=== PATIENT | female | born 1965 | race Caucasian/White ===

== ENCOUNTER 2017-11-19 19:47 | Emergency (ER) | payer BC ==
[2017-11-19] MEDS ORDERED: Ondansetron ODT 4 MG TAB ONE (20:24)
[2017-11-19] MEDS ORDERED: Diazepam 10 MG/2 ML SYRINGE IVP SCH (20:45)
[2017-11-19] MEDS ORDERED: Promethazine HCl 25 MG/ML VIAL ONE (21:11)
--- NOTE | 2017-11-19 21:41 | RAD ---
PORTABLE CHEST: HISTORY: Dizziness. FINDINGS: The lungs are clear. The heart and mediastinum are unremarkable. IMPRESSION: No acute abnormality. POS: [facility]
[2017-11-19] MEDS ORDERED: Meclizine HCl 25 MG TAB ONE (21:43)
--- NOTE | 2017-11-19 21:45 | CT ---
CT HEAD WITHOUT CONTRAST: TECHNIQUE: Multiple axial tomograms obtained through the head without IV enhancement. FINDINGS: The ventricles have normal size and position. No evidence of intracranial hemorrhage, mass, or infarct. There is CSF density in the left middle cranial fossa, anteriorly, which does produce mild mass effec t on the anterior left temporal lobe. An arachnoid cyst is favored. Other etiologies, such as epide rmoid, cannot be excluded by CT. This could be further characterized with MRI. There is complete opacification of the left maxillary sinus. There is also opacification of the left ethmoid air cells. The other paranasal sinuses and mastoids appear well aerated and clear. IMPRESSION: 1. A 2.5 cm cerebrospinal fluid density in the anterior left middle cranial fossa, probably represen ting an arachnoid cyst. Epidermoid cannot be excluded by CT. Suggest elective MRI for further shweta cterization. 2. Complete opacification of the left maxillary sinus, indicating diffuse mucosal disease. There is also mucosal thickening in the left ethmoid air cells. POS: [facility]
[2017-11-19 22:09] LABS: #Eosinphils 0.1 thou/uL (0.0-0.7); #Lymphocytes 1.9 thou/uL (1.20-3.40); #Monocytes 0.8 thou/uL (0.11-0.59); #Neutrophils 9.2 thou/uL (1.40-6.50); %Basophils 0.3 % (0.0-1.0); %Eosinophils 0.5 % (0.0-10.0); %Monocytes 6.8 % (0.0-10.0); %Neutrophils 76.4 % (42.0-75.0); Hemoglobin 13.1 g/dL (12.0-16.0); Mean Corpuscular HGB CONC 34.3 g/dL (32.0-36.0); Mean Corpuscular Volume 87.5 fl (81.0-99.0); Mean Platelet Volume 6.7 fL (7.4-10.4); Platelet Count 293 thou/uL (130-400); RBC Distribution Width 12.5 % (11.5-14.5); Red Blood Cell (RBC) Count 4.37 mill/uL (4.20-5.40)
[2017-11-19 22:23] LABS: BHCG - Serum POSITIVE (NEGATIVE); Pregs Control Background? CLEAR/WHITE (CLR/WHITE); Pregs Control Bar Appear? YES (CONTROL BAR)
[2017-11-19 22:29] LABS: ALT (SGPT) 19 U/L (8-55); AST (SGOT) 23 U/L (5-34); Albumin 4.3 g/dL (3.5-5.0); Alkaline Phosphatase 82 U/L (40-150); Anion Gap 13 mmol/L (10-20); BUN (Urea Nitrogen) 12 mg/dL (9.8-20.1); Bilirubin, Total 0.5 mg/dL (0.2-1.2); CK (CPK) 74 U/L (29-168); Calc. Creatinine Clearance 0 mL/min (70-130); Calcium 9.3 mg/dL (7.8-10.44); Carbon Dioxide 23 mmol/L (22-29); Chloride 104 mmol/L (98-107); Estimated GFR-MDRD 84; Globulin 2.7 g/dL (2.4-3.5); Glucose 117 mg/dL (70-105); Lipase 25 U/L (8-78); Potassium 4.3 mmol/L (3.5-5.1); Sodium 136 mmol/L (136-145)
[2017-11-20 00:26] LABS: Bilirubin Negative (Negative); Blood, Urine Negative (Negative); Clarity CLEAR (Clear); Glucose, Urine (Dipstick) Negative (Negative); Leukocyte Trace (Negative); Nitrite Negative (Negative); Protein, Urine (Dipstick) Negative (Neg-Trace); Specific Gravity, Urine 1.008 (1.002-1.036); Urobilinogen 0.2 mg/dL (0.2-1.0)
[2017-11-20 00:28] LABS: Bacteria/HPF None Seen HPF (None Seen); Hyaline Casts/LPF 0-3 HYALINE CAST LPF (0-3 Hyaline); Pathc Cast-AUWi Flag 0.14 (0-2.49); RBC/HPF 0-3 HPF (0-3); Squamous Epithelial None Seen HPF (0-3); WBC/HPF 0-3 HPF (0-3)
[2017-11-20] MEDS ORDERED: Diazepam 5 MG TAB ONE (00:59)
== END 2017-11-20 01:15 | disposition home or self-care (01) ==
LOC: ERS 19:47
DX: R42 Dizziness and giddiness (principal); R11.2 Nausea with vomiting, unspecified; I10 Essential (primary) hypertension; E78.00 Pure hypercholesterolemia, unspecified; F32.9 Major depressive disorder, single episode, unspecified; Z79.899 Other long term (current) drug therapy
CPT/HCPCS: 36415; 70450; 71045; 80053; 81003; 81015; 82550; 83605; 83690; 84702; 84703; 85025; 93005; 96361; 96365; J2550; Q0162

== ENCOUNTER 2017-11-27 12:47 | Outpatient (CLI) | payer BC ==
--- NOTE | 2017-11-27 14:51 | MRI ---
BRAIN MRI WITH AND WITHOUT CONTRAST: DATE: 11/27/17. COMPARISON: None. HISTORY: Prior head CT demonstrated 2.5 cm cyst density in the anterior aspect of the left middle cranial lars a suspicious for arachnoid cyst. TECHNIQUE: Multiplanar, multisequence MR imaging of the brain is obtained with and without contrast. FINDINGS: The diffusion weighted imaging demonstrates no evidence for acute infarction. Axial gradient echo im aging demonstrates no evidence for intracranial hemorrhage. There is opacification of the maxillary sinus on the left and there is partial opacification of the a nterior ethmoid air cells on the left. Arterial flow voids at the axial level of the skull base appear grossly unremarkable on T2 weighted i maging. There are a few scattered foci of increased T2 and FLAIR signal within the periventricular, subcortic al, and deep white matter suggesting small-vessel disease. As seen on recent CT examination, there is a lesion of CSF signal intensity on all pulse sequences wi thin the anterior inferior aspect of the middle cranial fossa on the left, evidence of an incidentall y noted arachnoid cyst. This measures up to 1.4 cm in AP dimension by approximately 3.4 cm in transv erse dimension. Post contrast imaging demonstrates no abnormal enhancement within the brain parenchyma. IMPRESSION: Arachnoid cyst within left middle cranial fossa. Additional incidental findings as above. POS: [facility]
== END 2017-11-27 12:48 | disposition home or self-care (01) ==
LOC: SCSMRI 12:47
PROVIDERS: ATTEND Physician Assistant
DX: G93.0 Cerebral cysts (principal); R93.0 Abnormal findings on diagnostic imaging of skull and head, not elsewhere classified
CPT/HCPCS: 70553

== ENCOUNTER 2017-12-10 09:28 | Outpatient (CLI) | payer BC ==
--- NOTE | 2017-12-10 12:12 | ULT ---
ULTRASOUND PELVIC ULTRASOUND TRANSVAGINAL DOPPLER DUPLEX: HISTORY: E34.9, elevated serum HCG in female, not . Postmenopausal 52-year-old female. TECHNIQUE: Transabdominal transducer used to evaluate intrapelvic contents using the urinary bladder as an acous tic window. Endovaginal transducer used to visualize intrapelvic contents in greater detail. Color fl ow Doppler and Pulsed Doppler spectral waveform analysis of ovaries. FINDINGS: Neither the right ovary nor the left ovary is visualized on the transabdominal and transvaginal image s. On the transabdominal images, the urinary bladder is not full, and there is a large amount of bow el gas that completely obscures the intrapelvic contents. On the transvaginal images, the endometria l stripe is measured as 1.0 cm (10 mm), including outer hypoechoic rim and the small, 2 mm thickness echogenic center. No fluid identified within the endometrial cavity. The uterus is measured as 5.5 x 2 x 4 cm. IMPRESSION: 1. A 10 mm (outer to outer) endometrial stripe. 2. Neither ovary visualized. 3. Limited study due to large amount of bowel gas. JN R POS: [facility]
== END 2017-12-10 09:29 | disposition home or self-care (01) ==
LOC: SCSULT 09:28
PROVIDERS: ATTEND Family Medicine
DX: E34.9 Endocrine disorder, unspecified (principal)
CPT/HCPCS: 76856

== ENCOUNTER 2017-12-21 07:52 | Outpatient (CLI) | payer BC ==
--- NOTE | 2017-12-21 09:21 | ULT ---
TRANSABDOMINAL TRANSVAGINAL PELIC ULTRASOUND: INDICATION: Evaluate for ovaries. COMPARISON: Recent examination dated 12/10/17. TECHNIQUE: Myles scale, color Doppler, and spectral Doppler images were obtained. FINDINGS: The uterus measures 1.6 x 3.4 x 4 cm. The endometrial stripe is 6 mm. The right ovary measures 1.5 x 1.1 x 1.5 cm. The left ovary measures 1.3 x 0.9 x 0.9 cm. Flow is ve ry difficult to document within the left ovary due to poor visualization. No free fluid is evident. IMPRESSION: 1. Right and left ovaries are visualized. The left ovary is slightly more difficult to see with dif ficulty in documenting flow. 2. No free fluid demonstrated. POS: [facility]
== END 2017-12-21 07:53 | disposition home or self-care (01) ==
LOC: SCSULT 07:52
PROVIDERS: ATTEND Family Medicine
DX: E34.9 Endocrine disorder, unspecified (principal)
CPT/HCPCS: 76856

== ENCOUNTER 2018-03-01 10:03 | Outpatient (CLI) | payer BC ==
--- NOTE | 2018-03-01 13:29 | MMO ---
BILATERAL SCREENING MAMMOGRAM: HISTORY: 52 year old female. Screening study. COMPARISON: 12/12/2014 and 06/29/2008 TECHNIQUE: CC and MLO views of both breasts were submitted for interpretation. This patient's mammogram is revi ewed with the assistance of computer aided detection. FINDINGS: The breasts are composed of scattered fibroglandular tissue. Bilaterally, no suspicious dominant mas s, architectural distortion, or suspicious calcification. IMPRESSION: BI-RADS Category 1-Negative examination. RECOMMENDATIONS: Annual mammogram. POS: [facility]
== END 2018-03-01 10:04 | disposition home or self-care (01) ==
LOC: SCSMAMMO 10:03
PROVIDERS: ATTEND Family Medicine
DX: Z12.31 Encounter for screening mammogram for malignant neoplasm of breast (principal)
CPT/HCPCS: 77067